=== PATIENT | male | born 1985 | race Caucasian/White ===

== ENCOUNTER 2019-06-26 14:14 | Outpatient (CLI) | payer OTHER, SELFPAY ==
--- NOTE | 2019-06-26 14:30 | XR_ITS ---
WS: [id number] LUMBAR SPINE: 3 VIEWS TECHNIQUE: AP, lateral and L5-S1 spot. HISTORY: LOW BACK PAIN COMPARISON: None available. Lumbar vertebra are normally aligned. Mild disc space narrowing at L4-5 and L5-S1. No fracture. SI joints are symmetric bilaterally. No soft tissue abnormalities. XR/XR lumbar spine 2-3V* [id number] IMPRESSION: Mild degenerative disc disease at L4-5 and L5-S1.
== END 2019-06-26 14:15 | disposition home or self-care (01) ==
LOC: RADWPI 14:21
PROVIDERS: Family Provider Family Medicine; PCP Family Medicine; Visit Provider Family Medicine
DX: M47.897 Other spondylosis, lumbosacral region (principal); M47.896 Other spondylosis, lumbar region; M54.5 Low back pain
CPT/HCPCS: 72100

== ENCOUNTER 2019-07-10 08:35 | Outpatient (CLI) | payer OTHER, SELFPAY ==
--- NOTE | 2019-07-10 08:41 | MR_ITS ---
WS: [id number] MRI LUMBAR SPINE NONCONTRAST HISTORY: LOW BACK PAIN, DEGENERATIVE DISC DISEASE, LUMBAR SPINE COMPARISON: None available. TECHNIQUE: Sagittal and axial multisequence imaging is submitted. 5 lumbar type vertebral bodies. S1 segment is partially lumbarized. Normal lumbar alignment. Mild disc desiccation at L4-5 and L5-S1. There is a moderate size disc at th e S1-S2 level which is well preserved. No marrow edema or fractures. Conus terminates normally at L1-2 disc level. L1-L2: Tiny central disc protrusion without stenosis. L2-L3: Mild annular disc bulging with tiny central disc protrusion. Mild facet arthropathy. There is very mild narrowing of the central canal and lateral recesses. Fluid in the facet joints bilaterally. L3-L4: No significant stenosis. Fluid in the facet joints bilaterally. L4-L5: Annular fissure and central disc protrusion and mild annular disc bulging. Mild narrowing of t he foramen bilaterally. Very slight encroachment upon the lateral recesses also. Small amount of flui d in the facet joints. L5-S1: Mild annular osteophytic ridging and a central disc protrusion with fissure. Mild facet arthro robert. Very slight contact on the LEFT S1 nerve root. No significant stenosis. Paraspinal soft tissues are negative. MR/MR lumbar spine wo con* [id number] IMPRESSION: 1. Mild degenerative disc disease at L4-5 and L5-S1. 2. S1 is lumbarized. 3. Very shallow central disc protrusion with annular fissures at L4-5 and L5-S 1. 4. Minimal disc contact on the LEFT S1 nerve root. 5. Small amount of fluid in the facet joints from L2-3 through L4-5. 6. Mild central canal narrowing and lateral recess narrowing at L2-3.
== END 2019-07-10 08:36 | disposition home or self-care (01) ==
LOC: RADWPI 08:40
PROVIDERS: Family Provider Family Medicine; PCP Family Medicine; Visit Provider Family Medicine
DX: M54.5 Low back pain (principal); M51.36 Other intervertebral disc degeneration, lumbar region
CPT/HCPCS: 72148

== ENCOUNTER 2020-07-24 08:48 | Outpatient (CLI) | payer OTHER, SELFPAY ==
[2020-07-24 09:28] LABS: Viscosity Semen Normal
[2020-07-24 09:29] LABS: Epithelial Count Semen 0-4 /hpf; Red Blood Count Semen 0-4 /hpf; Sperm Immotility 50 % (50-60); Sperm Non-Progressive Motility 20 % (5-10); Sperm Progressive Motility 30 % (31-34); White Blood Count Semen 15-25 /hpf
[2020-07-24 09:30] LABS: Pathology Referral Yes
[2020-07-24 09:31] LABS: PH Semen 7.5 (7.0-8.0)
[2020-07-24 10:20] LABS: Side 1 19; Side 2 22; Sperm Count 1.1 mill/mL (40-160)
[2020-07-24 10:45] LABS: Sperm Vitality-% Live Sperm 79 %
== END 2020-07-24 08:49 | disposition home or self-care (01) ==
PROVIDERS: PCP Family Medicine; Visit Provider Obstetrics & Gynecology
DX: N46.9 Male infertility, unspecified (principal)
CPT/HCPCS: 80500; 89320

== ENCOUNTER → 2020-09-09 08:32 | Outpatient (BNVA) | payer OTHER, SELFPAY | PROVIDERS: PCP Family Medicine; Visit Provider Urology | DX: N39.9 Disorder of urinary system, unspecified (principal); R86.8 Other abnormal findings in specimens from male genital organs | CPT/HCPCS: 81003 ==

== ENCOUNTER → 2021-03-05 08:31 | Outpatient (BNVA) | payer OTHER, SELFPAY | PROVIDERS: PCP Family Medicine; Visit Provider Urology | DX: N46.11 Organic oligospermia (principal); E23.0 Hypopituitarism; N46.9 Male infertility, unspecified | CPT/HCPCS: 84403 ==

== ENCOUNTER → 2021-05-12 09:52 | Outpatient (BNVA) | payer OTHER, SELFPAY | PROVIDERS: PCP Family Medicine; Visit Provider Urology | DX: E23.0 Hypopituitarism (principal) | CPT/HCPCS: 84403 ==

== ENCOUNTER → 2021-06-23 08:00 | Outpatient (BNVA) | payer OTHER, SELFPAY | PROVIDERS: PCP Family Medicine; Visit Provider Urology | DX: R79.89 Other specified abnormal findings of blood chemistry (principal) | CPT/HCPCS: 84403 ==

== ENCOUNTER 2021-12-16 08:28 | Outpatient (CLI) | payer OTHER, SELFPAY ==
[2021-12-16 09:16] LABS: Testosterone Total 440.1 ng/dL (249-836)
== END 2021-12-16 08:29 | disposition home or self-care (01) ==
LOC: LAB 08:39
PROVIDERS: PCP Family Medicine; Visit Provider Urology
DX: E23.0 Hypopituitarism (principal)
CPT/HCPCS: 84403

== ENCOUNTER → 2021-12-18 11:21 | Outpatient (BNVA) | payer OTHER, SELFPAY | PROVIDERS: PCP Family Medicine; Visit Provider Urology | DX: E23.0 Hypopituitarism (principal); R86.8 Other abnormal findings in specimens from male genital organs | CPT/HCPCS: 81003 ==

== ENCOUNTER 2021-12-21 08:23 | Outpatient (CLI) | payer OTHER, SELFPAY ==
[2021-12-21 09:56] LABS: Side 1 28; Side 2 27; Side WITHIN 10% 4; Sperm Count 27.5 mill/mL (40-160)
[2021-12-21 09:57] LABS: PH Semen 7.5 (7.0-8.0); Pathology Referral Yes; Sperm Immotility 40 % (50-60); Sperm Non-Progressive Motility 10 % (5-10); Sperm Progressive Motility 50 % (31-34); Viscosity Semen High Viscosity; White Blood Count Semen 0-4 /hpf
== END 2021-12-21 08:24 | disposition home or self-care (01) ==
PROVIDERS: PCP Family Medicine; Visit Provider Urology
DX: R86.8 Other abnormal findings in specimens from male genital organs (principal)
CPT/HCPCS: 80503; 89320

== ENCOUNTER 2022-02-25 08:07 | Outpatient (CLI) | payer OTHER, SELFPAY ==
[2022-02-25 09:06] LABS: Eosinophils # 0.2 10^3/uL (0.0-0.8); Eosinophils % 3.6 %; Hematocrit 48.3 % (42.0-52.0); Hemoglobin 16.9 g/dL (11.7-16.6); Lymphocytes # 1.4 10^3/uL (0.8-4.8); Lymphocytes % 33.3 %; Mean Corpuscular Hemoglobin 32.3 pg (28.0-34.0); Mean Corpuscular Volume 92.4 fl (80-94); Mean Platelet Volume 10.4 fL (7.4-10.4); Monocytes # 0.5 10^3/uL (0.2-0.9); Monocytes % 12.6 %; Neutrophils # 2.03 10^3/uL (1.8-7.7); Neutrophils % 49.3 %; Nucleated Red Blood Cells % 0 %; Platelet Count 200 10^3/cmm (130-400); Red Blood Count 5.23 10^6/uL (4.1-5.3); Red Cell Distribution Width 11.7 % (12.1-15.1); White Blood Count 4.1 10^3/uL (4.0-10.0)
[2022-02-25 09:46] LABS: Alanine Aminotransferase 25 U/L (0-41); Albumin Level 4.7 g/dL (3.5-5.2); Alkaline Phosphatase 71 U/L (40-130); Aspartate Amino Transferase 29 U/L (0-40); Blood Urea Nitrogen 20 mg/dL (6-20); Carbon Dioxide 27 mmol/L (22-29); Chloride 99 mmol/L (98-107); Chol HDL Ratio 5.74 mg/dL (1.0-5.00); Cholesterol 195 mg/dL (0-200); Cortisol Random 10.01 ug/dL (2.47-19.5); Free T4 Free Thyroxine 1.41 ng/dL (0.82-1.77); Globulin 3.1 g/dL (1.3-4.6); Glucose 90 mg/dL (65-115); HDL Cholesterol 34 mg/dL (60-100); LDL Cholesterol Calculated 144 mg/dL (50-129); LDL HDL Ratio 4.24 RATIO (0.00-3.22); Magnesium 2.2 mg/dL (1.7-2.3); Osmolality Calculated 282 mOsm/kg (285-295); Sodium 135 mmol/L (136-145); T3 Free 3.1 PG/ML (2.0-4.4); Testosterone Total 477.7 ng/dL (249-836); Thyroid Stimulating Hormone 1.49 uIU/mL (0.27-4.20); Total Bilirubin 0.6 mg/dL (0.15-1.2); Total Protein 7.8 g/dL (6.6-8.7); Triglycerides 86 mg/dL (0-150)
[2022-02-25 09:48] LABS: Anion Gap 13.7 (5-19); Potassium 4.7 mmol/L (3.5-5.1)
[2022-02-25 10:19] LABS: Ferritin 301 ng/mL (30-400); Homocysteine 7.59; Iron 102 ug/dL (59-158)
[2022-02-25 10:35] LABS: 25 Hydroxy Vitamin D 62 ng/mL (30-100); Follicle Stimulating Hormone 0.1 mIU/mL (1.5-12.4); Luteinizing Hormone 0.1 mIU/mL (1.7-8.6)
[2022-02-25 10:44] LABS: Vitamin B12 > 2000 pg/mL (232-1245)
[2022-02-25 11:52] LABS: Folate Level > 20.0 ng/mL (4.5-32.2)
[2022-02-26 16:22] LABS: Thyroid Peroxidase Antobodies 20 IU/mL (<9)
[2022-02-27 04:14] LABS: Dehydroepiandrosterone Sulfate 229 mcg/dL (93-415)
[2022-02-28 18:33] LABS: Testosterone, Free 75.5 pg/mL (46.0-224.0)
[2022-03-01 11:58] LABS: Thyroglobulin AB 8 IU/mL (< or = 1)
[2022-03-02 12:57] LABS: Anti-Double Strand DNA AB 3 IU/mL; Jo-1 Antibody <1.0 NEG AI (<1.0 NEG); SM/RNP Antibodies <1.0 NEG AI (<1.0 NEG); SS-B/LA IGG <1.0 NEG AI (<1.0 NEG); Scleroderma Ab(Scl-70) Ab <1.0 NEG AI (<1.0 NEG); Ss-A/Ro Igg <1.0 NEG AI (<1.0 NEG)
[2022-03-03 16:00] LABS: T3 Reverse LC/MS/MS 20 ng/dL (8-25)
[2022-03-04 01:22] LABS: Dihydrotestosterone 40 ng/dL (12-65)
== END 2022-02-25 08:08 | disposition home or self-care (01) ==
PROVIDERS: PCP Family Medicine; Visit Provider Nurse Practitioner Family
DX: R68.82 Decreased libido (principal); G47.00 Insomnia, unspecified; R53.83 Other fatigue; Z79.890 Hormone replacement therapy; E55.9 Vitamin D deficiency, unspecified; E53.9 Vitamin B deficiency, unspecified; Z13.29 Encounter for screening for other suspected endocrine disorder; E78.5 Hyperlipidemia, unspecified
CPT/HCPCS: 36415; 80053; 80061; 82306; 82533; 82607; 82627; 82642; 82728; 82746; 83001; 83002; 83090; 83540; 83735; 84153; 84402; 84403; 84439; 84443; 84481; 84482; 85025; 86225; 86235; 86376; 86800

== ENCOUNTER 2022-06-10 08:04 | Outpatient (CLI) | payer OTHER, SELFPAY ==
[2022-06-10 10:45] LABS: Cortisol Random 11.07 ug/dL (2.47-19.5)
[2022-06-10 11:33] LABS: Testosterone Total 399.6 ng/dL (249-836)
[2022-06-10 15:35] LABS: Estradiol 27.4 pg/mL (7.63-42.6)
[2022-06-12 07:19] LABS: Dehydroepiandrosterone Sulfate 239 mcg/dL (93-415)
[2022-06-15 18:34] LABS: Testosterone, Free 81.5 pg/mL (46.0-224.0)
== END 2022-06-10 08:05 | disposition home or self-care (01) ==
PROVIDERS: PCP Family Medicine; Visit Provider Nurse Practitioner Family
DX: Z01.89 Encounter for other specified special examinations (principal)
CPT/HCPCS: 82533; 82627; 82642; 82670; 84153; 84402; 84403; 86140

== ENCOUNTER 2022-09-24 07:40 | Outpatient (CLI) | payer OTHER, SELFPAY ==
[2022-09-24 08:27] LABS: Basophils % 0.5 %; Eosinophils # 0.1 10^3/uL (0.0-0.8); Eosinophils % 1.5 %; Hematocrit 50.1 % (42.0-52.0); Hemoglobin 17.3 g/dL (11.7-16.6); Lymphocytes # 1.4 10^3/uL (0.8-4.8); Lymphocytes % 34.2 %; Mean Corpuscular HGB Conc 34.5 g/dL (30.0-36.0); Mean Corpuscular Hemoglobin 31.7 pg (28.0-34.0); Mean Corpuscular Volume 91.9 fl (80-94); Mean Platelet Volume 9.7 fL (7.4-10.4); Monocytes # 0.5 10^3/uL (0.2-0.9); Neutrophils # 2.11 10^3/uL (1.8-7.7); Neutrophils % 51.6 %; Nucleated Red Blood Cells % 0 %; Platelet Count 199 10^3/cmm (130-400); Red Blood Count 5.45 10^6/uL (4.1-5.3); White Blood Count 4.1 10^3/uL (4.0-10.0)
[2022-09-24 08:58] LABS: Cortisol Random 16.31 ug/dL (2.47-19.5)
[2022-09-24 09:09] LABS: Alanine Aminotransferase 48 U/L (0-41); Albumin Level 4.4 g/dL (3.5-5.2); Alkaline Phosphatase 62 U/L (40-130); Anion Gap 13.9 (5-19); Aspartate Amino Transferase 28 U/L (0-40); Blood Urea Nitrogen 15 mg/dL (6-20); Calcium 9.1 mg/dL (8.5-10.5); Carbon Dioxide 26 mmol/L (22-29); Chloride 102 mmol/L (98-107); Estradiol 24.5 pg/mL (7.63-42.6); Ferritin 177 ng/mL (30-400); Globulin 2.5 g/dL (1.3-4.6); Glucose 90 mg/dL (65-115); Iron 154 ug/dL (59-158); Osmolality Calculated 284 mOsm/kg (285-295); Potassium 4.9 mmol/L (3.5-5.1); Prostate Specific Antigen 0.769 ng/mL (0-4); Sodium 137 mmol/L (136-145); Thyroid Stimulating Hormone 1.25 uIU/mL (0.27-4.20); Total Bilirubin 0.7 mg/dL (0.15-1.2); Total Protein 6.9 g/dL (6.6-8.7)
[2022-09-24 09:34] LABS: Free T4 Free Thyroxine 1.32 ng/dL (0.82-1.77); T3 Free 3.1 PG/ML (2.0-4.4)
[2022-09-27 15:30] LABS: Testosterone, Free 91.4 pg/mL (46.0-224.0)
[2022-09-27 16:30] LABS: PSA Free 0.2 ng/mL; PSA Free Percentage 33 % (calc) (>25); PSA Total 0.6 ng/mL (< OR = 4.0); Thyroglobulin AB 9 IU/mL (< or = 1)
[2022-09-27 16:50] LABS: Thyroid Peroxidase Antobodies 14 IU/mL (<9)
[2022-09-29 15:40] LABS: T3 Reverse LC/MS/MS 14 ng/dL (8-25)
[2022-09-30 23:35] LABS: Dihydrotestosterone 38 ng/dL (12-65)
== END 2022-09-24 07:41 | disposition home or self-care (01) ==
LOC: LAB 07:46
PROVIDERS: PCP Family Medicine; Visit Provider Nurse Practitioner Family
DX: R53.83 Other fatigue (principal); E29.1 Testicular hypofunction; Z12.5 Encounter for screening for malignant neoplasm of prostate; N46.9 Male infertility, unspecified; R94.6 Abnormal results of thyroid function studies; R79.82 Elevated C-reactive protein (CRP)
CPT/HCPCS: 80053; 82533; 82642; 82670; 82728; 83540; 84153; 84154; 84402; 84403; 84439; 84443; 84481; 84482; 85025; 86376; 86800

== ENCOUNTER 2023-03-28 07:00 | Outpatient (CLI) | payer OTHER, SELFPAY ==
[2023-03-28 07:20] LABS: Basophils % 0.7 %; Eosinophils # 0.1 10^3/uL (0.0-0.8); Eosinophils % 1.6 %; Hematocrit 47.9 % (37-53); Lymphocytes # 1.7 10^3/uL (0.8-4.8); Lymphocytes % 37.6 %; Mean Corpuscular HGB Conc 36.5 g/dL (30-55); Mean Corpuscular Volume 90.4 fl (82-101); Mean Platelet Volume 9.7 fL (7.4-10.4); Monocytes # 0.5 10^3/uL (0.2-0.9); Monocytes % 11.1 %; Neutrophils # 2.15 10^3/uL (1.8-7.7); Neutrophils % 48.8 %; Nucleated Red Blood Cells % 0 %; Platelet Count 185 10^3/cmm (157-399); Red Cell Distribution Width 11.7 % (12.1-15.1); White Blood Count 4.41 10^3/uL (3.29-11.43)
[2023-03-28 08:09] LABS: Alanine Aminotransferase 31 U/L (0-41); Albumin Level 4.7 g/dL (3.5-5.2); Alkaline Phosphatase 57 U/L (40-130); Anion Gap 11.2 (5-19); Aspartate Amino Transferase 24 U/L (0-40); Blood Urea Nitrogen 15 mg/dL (6-20); Calcium 9.7 mg/dL (8.5-10.5); Carbon Dioxide 28 mmol/L (22-29); Chloride 104 mmol/L (98-107); Cortisol Random 15.92 ug/dL (2.47-19.5); Globulin 2.5 g/dL (1.3-4.6); Glomerular Filtration Rate 95.5 mL/min (90-130); Glucose 94 mg/dL (65-115); Osmolality Calculated 289 mOsm/kg (285-295); Potassium 4.2 mmol/L (3.5-5.1); Prostate Specific Antigen 0.881 ng/mL (0-4); Sodium 139 mmol/L (136-145); Testosterone Total 531.4 ng/dL (249-836); Thyroid Stimulating Hormone 1.17 uIU/mL (0.27-4.20); Total Bilirubin 0.7 mg/dL (0.15-1.2); Total Protein 7.2 g/dL (6.6-8.7)
[2023-03-28 08:14] LABS: Folate Level 16.3 ng/mL (4.5-32.2)
[2023-03-28 08:50] LABS: 25 Hydroxy Vitamin D 46 ng/mL (30-100); Estradiol 35.9 pg/mL (7.63-42.6); Ferritin 167 ng/mL (30-400); Iron 202 ug/dL (59-158); Vitamin B12 1093 pg/mL (232-1245)
[2023-03-29 12:18] LABS: Dehydroepiandrosterone Sulfate 256 mcg/dL (93-415)
[2023-03-30 08:24] LABS: Thyroglobulin AB 11 IU/mL (< or = 1); Thyroid Peroxidase Antobodies 10 IU/mL (<9)
[2023-04-02 16:11] LABS: T3 Reverse LC/MS/MS 13 ng/dL (8-25)
[2023-04-02 18:00] LABS: Testosterone, Free 107.2 pg/mL (46.0-224.0)
[2023-04-03 03:00] LABS: Dihydrotestosterone 76 ng/dL (12-65)
== END 2023-03-28 07:01 | disposition home or self-care (01) ==
LOC: LAB 07:02
PROVIDERS: PCP Family Medicine; Visit Provider Nurse Practitioner Family
DX: R68.82 Decreased libido (principal); G47.00 Insomnia, unspecified; R53.83 Other fatigue; E53.9 Vitamin B deficiency, unspecified; E55.9 Vitamin D deficiency, unspecified; Z79.890 Hormone replacement therapy; Z79.899 Other long term (current) drug therapy
CPT/HCPCS: 36415; 80053; 82306; 82533; 82607; 82627; 82642; 82670; 82728; 82746; 83540; 84153; 84402; 84403; 84439; 84443; 84481; 84482; 85025; 86376; 86800

== ENCOUNTER 2023-11-10 07:11 | Outpatient (CLI) | payer OTHER, SELFPAY ==
[2023-11-10 07:41] LABS: Basophils % 0.5 %; Eosinophils # 0.1 10^3/uL (0.0-0.8); Eosinophils % 1.8 %; Hematocrit 48.8 % (37-53); Lymphocytes # 1.3 10^3/uL (0.8-4.8); Lymphocytes % 33.6 %; Mean Corpuscular HGB Conc 35.9 g/dL (30-55); Mean Corpuscular Hemoglobin 33.8 pg (27-33); Mean Corpuscular Volume 94.2 fl (82-101); Mean Platelet Volume 9.6 fL (7.4-10.4); Monocytes # 0.5 10^3/uL (0.2-0.9); Monocytes % 11.7 %; Neutrophils # 2.05 10^3/uL (1.8-7.7); Neutrophils % 52.1 %; Nucleated Red Blood Cells % 0 %; Platelet Count 202 10^3/cmm (157-399); Red Blood Count 5.18 10^6/uL (3.85-5.65); Red Cell Distribution Width 11.9 % (12.1-15.1); White Blood Count 3.93 10^3/uL (3.29-11.43)
[2023-11-10 08:18] LABS: Alanine Aminotransferase 37 U/L (0-41); Albumin Level 4.4 g/dL (3.5-5.2); Alkaline Phosphatase 63 U/L (40-130); Anion Gap 14.5 (5-19); Aspartate Amino Transferase 28 U/L (0-40); Blood Urea Nitrogen 10 mg/dL (6-20); Calcium 9.2 mg/dL (8.5-10.5); Carbon Dioxide 28 mmol/L (22-29); Chloride 100 mmol/L (98-107); Cortisol Random 15.95 ug/dL (2.47-19.5); Free T4 Free Thyroxine 1.35 ng/dL (0.82-1.77); Globulin 2.9 g/dL (1.3-4.6); Glomerular Filtration Rate 95.5 mL/min (90-130); Glucose 92 mg/dL (65-115); Osmolality Calculated 285 mOsm/kg (285-295); Potassium 4.5 mmol/L (3.5-5.1); Sodium 138 mmol/L (136-145); Testosterone Total 808.6 ng/dL (249-836); Thyroid Stimulating Hormone 1.27 uIU/mL (0.27-4.20); Total Bilirubin 0.5 mg/dL (0.15-1.2); Total Protein 7.3 g/dL (6.6-8.7)
[2023-11-10 09:10] LABS: 25 Hydroxy Vitamin D 46 ng/mL (30-100); Estradiol 62.8 pg/mL (7.63-42.6); Ferritin 122 ng/mL (30-400); Iron 110 ug/dL (59-158); Percent Saturation 35.8 % (20-50); Total Iron Binding Capacity 307 mcg/dl; Unsaturated Iron Binding 197 ug/dL (112-347); Vitamin B12 939 pg/mL (232-1245)
[2023-11-10 10:03] LABS: Folate Level > 20.0 ng/mL (4.5-32.2)
[2023-11-12 04:25] LABS: Dehydroepiandrosterone Sulfate 288 mcg/dL (93-415)
[2023-11-14 11:20] LABS: Thyroid Peroxidase Antobodies 8 IU/mL (<9)
[2023-11-14 17:24] LABS: Testosterone, Free 230.9 pg/mL (46.0-224.0)
[2023-11-17 02:36] LABS: Dihydrotestosterone 83 ng/dL (12-65)
== END 2023-11-10 07:12 | disposition home or self-care (01) ==
LOC: LAB 07:13
PROVIDERS: PCP Family Medicine
DX: Z79.890 Hormone replacement therapy (principal); R53.83 Other fatigue; G47.00 Insomnia, unspecified; R68.82 Decreased libido; E56.9 Vitamin deficiency, unspecified
CPT/HCPCS: 36415; 80053; 82306; 82533; 82607; 82627; 82642; 82670; 82728; 82746; 83540; 83550; 84153; 84402; 84403; 84439; 84443; 84481; 84482; 85025; 86376

== ENCOUNTER 2024-05-11 07:09 | Outpatient (CLI) | payer OTHER, SELFPAY ==
[2024-05-11 09:01] LABS: Basophils % 0.4 %; Eosinophils # 0.1 10^3/uL (0.0-0.8); Eosinophils % 1.2 %; Hematocrit 47.8 % (37-53); Lymphocytes # 1.5 10^3/uL (0.8-4.8); Lymphocytes % 28.6 %; Mean Corpuscular HGB Conc 34.7 g/dL (30-55); Mean Corpuscular Hemoglobin 31.9 pg (27-33); Mean Corpuscular Volume 91.9 fl (82-101); Mean Platelet Volume 9.9 fL (7.4-10.4); Monocytes # 0.5 10^3/uL (0.2-0.9); Monocytes % 8.8 %; Neutrophils % 60.8 %; Nucleated Red Blood Cells % 0 %; Platelet Count 200 10^3/cmm (157-399); Red Cell Distribution Width 12.6 % (12.1-15.1)
[2024-05-11 09:42] LABS: Alanine Aminotransferase 107 U/L (0-41); Albumin Level 4.3 g/dL (3.5-5.2); Alkaline Phosphatase 60 U/L (40-130); Anion Gap 11.1 (5-19); Aspartate Amino Transferase 53 U/L (0-40); Blood Urea Nitrogen 20 mg/dL (6-20); Calcium 9.3 mg/dL (8.5-10.5); Carbon Dioxide 28 mmol/L (22-29); Chloride 101 mmol/L (98-107); Cortisol Random 13.17 ug/dL (2.47-19.5); Free T4 Free Thyroxine 1.18 ng/dL (0.82-1.77); Globulin 2.6 g/dL (1.3-4.6); Glomerular Filtration Rate 75.3 mL/min (90-130); Glucose 93 mg/dL (65-115); Osmolality Calculated 284 mOsm/kg (285-295); Potassium 4.1 mmol/L (3.5-5.1); Sodium 136 mmol/L (136-145); Testosterone Total 876.7 ng/dL (249-836); Thyroid Stimulating Hormone 1.21 uIU/mL (0.27-4.20); Total Bilirubin 0.6 mg/dL (0.15-1.2); Total Protein 6.9 g/dL (6.6-8.7)
[2024-05-11 14:24] LABS: Iron 122 ug/dL (59-158); Percent Saturation 39.4 % (20-50); Total Iron Binding Capacity 309 mcg/dl; Unsaturated Iron Binding 187 ug/dL (112-347)
[2024-05-11 14:35] LABS: Folate Level 13.4 ng/mL (4.5-32.2)
[2024-05-11 14:36] LABS: 25 Hydroxy Vitamin D 39 ng/mL (30-100); Vitamin B12 1721 pg/mL (232-1245)
[2024-05-12 07:14] LABS: Dehydroepiandrosterone Sulfate 251 mcg/dL (93-415)
[2024-05-14 16:16] LABS: Thyroglobulin AB 9 IU/mL (< or = 1); Thyroid Peroxidase Antobodies 7 IU/mL (<9)
[2024-05-17 04:05] LABS: Testosterone, Free 226.1 pg/mL (46.0-224.0)
== END 2024-05-11 07:10 | disposition home or self-care (01) ==
LOC: LAB 07:14
PROVIDERS: PCP Family Medicine; Visit Provider Nurse Practitioner Family
DX: R53.83 Other fatigue (principal); G47.10 Hypersomnia, unspecified; R68.82 Decreased libido; Z79.890 Hormone replacement therapy
CPT/HCPCS: 80053; 82306; 82533; 82607; 82627; 82642; 82746; 83540; 83550; 84402; 84403; 84439; 84443; 84481; 84482; 85025; 86376; 86800

== ENCOUNTER → 2024-09-04 10:20 | Outpatient (BNVA) | payer OTHER, SELFPAY | PROVIDERS: PCP Family Medicine; Visit Provider Student in an Organized Health Care Education/Training Program | DX: M25.521 Pain in right elbow (principal); S46.211A Strain of muscle, fascia and tendon of other parts of biceps, right arm, initial encounter; X50.0XXA Overexertion from strenuous movement or load, initial encounter | CPT/HCPCS: 73080 ==

== ENCOUNTER 2024-09-07 08:08 | Outpatient (CLI) | payer OTHER, SELFPAY ==
--- NOTE | 2024-09-07 08:45 | MR_ITS ---
WS: [id number] EXAMINATION: MR elbow RT wo con* [id number] ORDER DATE: 09/07/2024 9:18 AM COMPARISON: None. HISTORY: right distal bicep tendon rupture/injury TECHNIQUE: Axial T1, axial T2 fat sat, coronal T1, coronal proton density fat sat, coronal STIR, sagittal proton density fat sat, and axial fat sat 3D performed. FINDINGS: High-grade complete tear of the biceps brachii from the distal radial tuberosity insertion. The tendon appears retracted above the elbow. Diffuse edema surrounding the biceps brachii muscle belly. Brachialis muscle and tendon appears intact. Normal bone marrow signal in the distal humerus. Normal bone marrow signal in the radial head and olecranon. No other acute findings MR/MR elbow RT wo con* [id number] IMPRESSION: High-grade complete tear of the biceps brachii tendon retracted above the level of the level of the elbow joint.
== END 2024-09-07 08:09 | disposition home or self-care (01) ==
PROVIDERS: PCP Family Medicine; Visit Provider Student in an Organized Health Care Education/Training Program
DX: S46.211A Strain of muscle, fascia and tendon of other parts of biceps, right arm, initial encounter (principal); X58.XXXA Exposure to other specified factors, initial encounter
CPT/HCPCS: 73221

== ENCOUNTER 2024-09-13 06:22 | Day surgery (SDC) | payer OTHER, SELFPAY ==
[2024-09-13] VITALS (12 sets, daily range): BP systolic 112–130; BP diastolic 52–79; PULSE 67–89; RESP 14–18; TEMP 36.2–36.7; O2SAT 96–99; BMI 29.7
--- NOTE | 2024-09-13 | XR_ITS ---
WS: [id number] Exam: XR elbow RT 2V [id number] Date/Time of Exam: 09/13/2024 12:00 AM Reason For Exam: WOODY PICS Intraoperative AP and lateral C-arm images of the RIGHT elbow are submitted. Images were obtained for intraoperative visualization purposes.
--- NOTE | 2024-09-13 08:11 | W.PM.OPSUD ---
Surgery/Procedure H&P Update DATE OF PROCEDURE: September 13, 2024 DATE H&P PERFORMED: 09/11/24 H&P UPDATE INFORMATION: I have reviewed H&P completed within last 30 days, I have examined patient prior to procedure and No changes to prior documentation PREOP DIAGNOSIS: Right distal bicep tendon rupture PRIMARY INDICATION FOR PROCEDURE: Right distal bicep tendon rupture PLANNED PROCEDURE: Operation Date: 09/13/24 08:20 Proposed Procedures p Bicep Tenodesis Tendon Repair Bicep(Right) - Jose R Hanley DO
[2024-09-13] MEDS: ketorolac 30 mg/mL INJ IVP (08:25)
[2024-09-13] MEDS: acetaminophen 1,000 MG/100 ML PIGGYBACK 400 MG IV (08:25)
[2024-09-13] MEDS: sodium chloride 0.9% 1,000 ML 30 ML IV (08:26)
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
[2024-09-13] MEDS: ceFAZolin 2,000 MG in sodium chloride 0.9% (plus) 50 ML 100 MG IV (08:33)
--- NOTE | 2024-09-13 10:47 | P.BOP_ITS ---
Date of Procedure: [September 13, 2024] Surgeon: [Dr. Hanley DO] Home Health Registered Nurse(s): [Rafi Hanley PA-C] Procedure(s) performed: [Right distal biceps tendon repair.] Findings of the procedure(s): [Right distal biceps tendon complete rupture. Procedure went well as planned.] Estimated blood loss: [5 ml] Specimen(s) removed: [N/A] Post-operative diagnosis: [Right distal biceps tendon complete rupture]
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
--- NOTE | 2024-09-13 11:01 | ANES.PROC ---
Anesthesia Procedures Procedure/Date: 09/13/24 Nerve Block ^: Nerve Block 1: Main Anesthesia: general anesthesia Time Out Performed: Yes Consent: requested by attending/covering physician and from patient Nerve block location: supraclavicular Anesthesia monitors applied: pulse oximetry, EKG, BP cuff and oxygen Nerve block position: supine Anesthetic Used: ropivicaine 0.5% Amount of anesthesia used (mL): 30 Ultrasound used to: recognize landmarks Nerve Stimulator Used?: Yes Interscalene/Femoral BLK: other needle (pjunk 4inch) Injection: neg aspiration of heme Patient Tolerated Procedure: well Complications: none Additional Comments: decadron 4mg added to block
--- NOTE | 2024-09-13 11:26 | P.PCN_ITS ---
PACU note Narrative: Patient seen and examined in PACU in recovery is recovering well no issues or complications. Fingertips are warm well-perfused brisk capillary refill less than 2 seconds. Patient prior to receiving any block was able to perform all cardinal hand movements he was able to perform AIN/PIN/radial/ulnar/median nerve motor was intact as well as able to make a full fist extend his digits give a thumbs up A-OK spread fingers and cross fingers. Sensation was intact to light touch to the radial ulnar and median nerve distribution. Patient then subsequently underwent a postoperative block for postoperative pain control. Follow-up in the orthopedic office in 2 weeks given appropriate discharge dir ections and maintain splint until follow-up. All questions answered at this time Exam: awake and vital signs stable Disposition: discharged
--- NOTE | 2024-09-13 12:15 | SUR.PHASEII ---
good capillary refill to fingers of right hand.
--- NOTE | 2024-09-13 12:35 | ANE.PACU2 ---
Inpatient post-anesthesia follow up: Airway intact: Yes Vital signs: Temperature 97.7 F Pulse Rate 72 Respiratory Rate 16 Blood Pressure 126/79 Pulse Oximetry 98 Oxygen Delivery Me thod Room Air Oxygen Flow Rate Fraction of Inspir ed Oxygen Hydration adequate: Yes Nausea and vomiting: No Pain level: 1 Mental status: Baseline
== END 2024-09-13 12:35 | disposition home or self-care (01) ==
PROVIDERS: PCP Family Medicine; Visit Provider Student in an Organized Health Care Education/Training Program
PROC: (CPT 23430; principal; 2024-09-13 08:10)
DX: S46.211A Strain of muscle, fascia and tendon of other parts of biceps, right arm, initial encounter (principal); X50.0XXA Overexertion from strenuous movement or load, initial encounter
CPT/HCPCS: 24342; 73070; 76000; C1713; J0131; J0690; J1100; J1171; J1885; J2250; J2704; J3010; J7030; J9999

== ENCOUNTER → 2024-09-26 09:46 | Outpatient (BNVA) | payer OTHER, SELFPAY | PROVIDERS: PCP Family Medicine; Visit Provider Student in an Organized Health Care Education/Training Program | DX: Z98.890 Other specified postprocedural states (principal); Z46.89 Encounter for fitting and adjustment of other specified devices; S46.211D Strain of muscle, fascia and tendon of other parts of biceps, right arm, subsequent encounter; X58.XXXD Exposure to other specified factors, subsequent encounter | CPT/HCPCS: 73080 ==

== ENCOUNTER 2024-09-26 11:35 | Outpatient (CLI) | payer OTHER, SELFPAY | END 2024-09-26 11:36 | disposition home or self-care (01) | LOC: SPT 11:37 | PROVIDERS: PCP Family Medicine; Visit Provider Specialist | DX: Z47.89 Encounter for other orthopedic aftercare (principal); S46.211D Strain of muscle, fascia and tendon of other parts of biceps, right arm, subsequent encounter; Z98.890 Other specified postprocedural states | CPT/HCPCS: 97760; L3761 ==

== ENCOUNTER 2024-10-17 15:55 | Outpatient (RCR) | payer OTHER, SELFPAY | END 2024-11-03 23:59 | disposition home or self-care (01) | LOC: SOT 15:55 | PROVIDERS: Visit Provider Student in an Organized Health Care Education/Training Program | DX: S46.211A Strain of muscle, fascia and tendon of other parts of biceps, right arm, initial encounter (principal); X58.XXXA Exposure to other specified factors, initial encounter | CPT/HCPCS: 97110; 97140; 97166 ==

== ENCOUNTER 2024-11-04 05:00 | Outpatient (RCR) | payer OTHER, SELFPAY | END 2024-12-03 23:59 | disposition home or self-care (01) | LOC: SOT 05:00 | PROVIDERS: PCP Family Medicine; Visit Provider Student in an Organized Health Care Education/Training Program | DX: S46.211A Strain of muscle, fascia and tendon of other parts of biceps, right arm, initial encounter (principal); X58.XXXA Exposure to other specified factors, initial encounter | CPT/HCPCS: 97110; 97140 ==

== ENCOUNTER 2024-11-19 07:27 | Outpatient (CLI) | payer OTHER, SELFPAY ==
[2024-11-19 08:41] LABS: Basophils % 0.8 %; Eosinophils # 0.1 10^3/uL (0.0-0.8); Eosinophils % 1.4 %; Hematocrit 50.3 % (37-53); Lymphocytes # 1.5 10^3/uL (0.8-4.8); Lymphocytes % 29.1 %; Mean Corpuscular HGB Conc 35.4 g/dL (30-55); Mean Corpuscular Hemoglobin 32.9 pg (27-33); Monocytes # 0.6 10^3/uL (0.2-0.9); Monocytes % 12.4 %; Neutrophils % 56.1 %; Nucleated Red Blood Cells % 0 %; Platelet Count 226 10^3/cmm (157-399); Red Blood Count 5.41 10^6/uL (3.85-5.65); Red Cell Distribution Width 12.6 % (12.1-15.1); White Blood Count 5.16 10^3/uL (3.29-11.43)
[2024-11-19 09:19] LABS: 25 Hydroxy Vitamin D 64 ng/mL (30-100); Alanine Aminotransferase 52 U/L (0-41); Albumin Level 4.5 g/dL (3.5-5.2); Alkaline Phosphatase 72 U/L (40-130); Aspartate Amino Transferase 37 U/L (0-40); Blood Urea Nitrogen 13 mg/dL (6-20); Calcium 9.6 mg/dL (8.5-10.5); Carbon Dioxide 25 mmol/L (22-29); Chloride 100 mmol/L (98-107); Estradiol 41.7 pg/mL (7.63-42.6); Ferritin 135 ng/mL (30-400); Globulin 3.1 g/dL (1.3-4.6); Glucose 91 mg/dL (65-115); Iron 212 ug/dL (59-158); Osmolality Calculated 282 mOsm/kg (285-295); Percent Saturation 63.2 % (20-50); Sodium 136 mmol/L (136-145); Thyroid Stimulating Hormone 1.71 uIU/mL (0.27-4.20); Total Bilirubin 0.8 mg/dL (0.15-1.2); Total Iron Binding Capacity 335 mcg/dl; Total Protein 7.6 g/dL (6.6-8.7); Unsaturated Iron Binding 123 ug/dL (112-347); Vitamin B12 1502 pg/mL (232-1245)
[2024-11-19 09:56] LABS: Cortisol Random 15.38 ug/dL (2.47-19.5); Free T4 Free Thyroxine 1.24 ng/dL (0.82-1.77)
[2024-11-20 08:14] LABS: Dehydroepiandrosterone Sulfate 266 mcg/dL (93-415)
[2024-11-21 08:59] LABS: Thyroid Peroxidase Antobodies 9 IU/mL (<9)
[2024-11-24 02:30] LABS: Dihydrotestosterone 50 ng/dL (12-65)
== END 2024-11-19 07:28 | disposition home or self-care (01) ==
PROVIDERS: PCP Family Medicine; Visit Provider Nurse Practitioner Family
DX: E55.9 Vitamin D deficiency, unspecified (principal); G47.00 Insomnia, unspecified; R68.82 Decreased libido; E53.9 Vitamin B deficiency, unspecified; R53.83 Other fatigue; Z79.890 Hormone replacement therapy
CPT/HCPCS: 36415; 80053; 82306; 82533; 82607; 82627; 82642; 82670; 82728; 83540; 83550; 84153; 84439; 84443; 84481; 84482; 85025; 86376